=== PATIENT | female | born 1995 | race Caucasian/White ===

== ENCOUNTER 2021-10-16 23:15 | Emergency (ER) | payer SELFPAY ==
[~2021-10-16] VITALS: Ht 160 cm; Wt 88.5 kg
[2021-10-16 23:20] VITALS: BP 144/80
--- NOTE | 2021-10-16 23:51 | NUR ---
Patient ambulated to bed 8.
[2021-10-16] MEDS ORDERED: DICYCLOMINE HCL LIQUID 20 MG, ALUMINUM HYD/MAG/SIMETHICONE 30 ML, LIDOCAINE VISCOUS 2% ... PO ONE ×3 (23:55)
[2021-10-16] MEDS ORDERED: FAMOTIDINE 20 MG TAB PO ONE (23:55)
[2021-10-16] MEDS ORDERED: ONDANSETRON 4 MG ODT PO ONE (23:55)
[2021-10-17 00:12] LABS: BASOPHILS % (AUTO) 0.3 % (0.0-2.0); EOSINOPHILS # (AUTO) 0.2 K/uL (0-0.4); EOSINOPHILS % (AUTO) 1.3 % (0.0-4.0); HEMATOCRIT 41.7 % (36-48); HEMOGLOBIN 14.2 g/dL (12.0-16.0); LYMPHOCYTES # (AUTO) 1.9 K/uL (2.5-16.5); LYMPHOCYTES % (AUTO) 11.9 % (20.5-51.1); MEAN CORPUSCULAR HEMOGLOBIN 29 pg (27-31); MEAN CORPUSCULAR HGB CONC 34 g/dL (33-37); MEAN CORPUSCULAR VOLUME 85.8 fL (80-94); MONOCYTES # (AUTO) 1.3 K/uL (0.8-1.0); MONOCYTES % (AUTO) 8.3 % (1.7-9.3); NEUTROPHILS # (AUTO) 12.3 K/uL (1.8-7.7); NEUTROPHILS % (AUTO) 78.2 % (42.2-75.2); PLATELET COUNT (AUTO) 301 K/uL (140-450); RED BLOOD CELL COUNT(AUTO) 4.86 MIL/uL (4.20-5.40); RED CELL DISTRIBUTION WIDTH 12.9 % (11.6-13.7); WHITE BLOOD COUNT (AUTO) 15.7 K/uL (4.8-10.8)
[2021-10-17] MEDS ORDERED: DICYCLOMINE HCL LIQUID 10 MG/5 ML UDC ONE (00:13)
[2021-10-17] MEDS ORDERED: ALUMINUM HYD/MAG/SIMETHICONE 30 ML UDC ONE (00:13)
[2021-10-17 00:42] LABS: ALBUMIN 3.6 g/dL (3.4-5.0); ANION GAP 12.7 (8-16); CREATININE 0.7 mg/dL (0.6-1.3); POTASSIUM 4.7 mmol/L (3.5-5.1); TOTAL BILIRUBIN 0.3 mg/dL (0.0-1.0)
[2021-10-17] MEDS ORDERED: SUCRALFATE 1 GM TAB PO SCH (01:00)
[2021-10-17] MEDS ORDERED: MORPHINE SULFATE 4 MG/ML SYR IM ONE (01:00)
[2021-10-17] MEDS ORDERED: MORPHINE SULFATE 4 MG/ML SYR ONE (01:04)
[2021-10-17] MEDS ORDERED: SUCRALFATE 1 GM TAB ONE (01:04)
[2021-10-17 01:08] LABS: APPEARANCE,URINE CLEAR (CLEAR); BILIRUBIN,URINE NEGATIVE (NEGATIVE); BLOOD, URINE 2+ (NEGATIVE); COLOR,URINE YELLOW (YELLOW); LEUKOCYTE ESTERASE ,URINE NEGATIVE (NEGATIVE); NITRITE, URINE NEGATIVE (NEGATIVE); UGLUCOSE NEGATIVE (NEGATIVE)
--- NOTE | 2021-10-17 01:25 | NUR ---
epigastric pain x2 days. pt states n/v. denies d/cough/ chest pain/ headache. pt states pain 8/10. pt has hx of gastritis, arthiritis , psoriasis, vitiligo lmp : irregular
[2021-10-17 01:51] LABS: RBC,URINE 20-50 /HPF (0-5); WBC,URINE 16-25 (MOD) /HPF (0-5)
[2021-10-17] MEDS ORDERED: cephALEXin 500 MG CAP PO ONE (02:00)
[2021-10-17] MEDS ORDERED: FAMO-90 PO (02:10)
[2021-10-17] MEDS ORDERED: CEPH-588 PO (02:10)
[2021-10-17] MEDS ORDERED: SUCR1TAB35 PO (02:10)
--- NOTE | 2021-10-17 02:30 | NUR ---
pt now c/o of pain that came back now pain 12/03. Dr mondragon notified
[2021-10-17] MEDS ORDERED: IBUPROFEN 600 MG TAB PO ONE (02:55)
[2021-10-17 03:05] VITALS: BP 134/76
--- NOTE | 2021-10-17 03:08 | NUR ---
Patient discharged with v/s stable. Written and verbal after care instructions given and explained. Patient alert, oriented and verbalized understanding of instructions. Ambulatory with steady gait. All questions addressed prior to discharge. ID band removed. Patient advised to follow up with PMD. Rx of keflex, pepcid, carafate given. Opportunity to ask questions provided and answered.
== END 2021-10-17 03:08 | disposition home or self-care (01) ==
LOC: MED 23:15
DX: K29.00 Acute gastritis without bleeding (principal); N39.0 Urinary tract infection, site not specified; R03.0 Elevated blood-pressure reading, without diagnosis of hypertension; K21.9 Gastro-esophageal reflux disease without esophagitis; M19.90 Unspecified osteoarthritis, unspecified site; Z98.890 Other specified postprocedural states; Z79.2 Long term (current) use of antibiotics; Z79.899 Other long term (current) drug therapy
CPT/HCPCS: 36415; 80053; 81001; 81025; 83690; 85025; 87086; 96372; 99284; J2270; Q0162